=== PATIENT | female | born 1995 | race Caucasian/White ===

== ENCOUNTER 2023-04-29 08:55 | Outpatient (REF) | payer MEDICAID, SELFPAY ==
[2023-04-29 11:16] LABS: MANUAL DIFF FLAG NO
[2023-04-29 11:28] LABS: Basophils Absolute Auto 0.1 X10*3/uL (0.0-0.2); Basophils Percent Auto 1.1 % (0-2); Eosinophils Absolute Auto 0.2 X10*3/uL (0.0-0.4); Eosinophils Percent Auto 2.3 % (0-4); Hematocrit 41.7 % (37.0-47.0); Hemoglobin 13.1 g/dl (12.0-16.0); Imm Gran Abs Auto 0.02 X10*3/uL (0.00-0.03); Imm Gran Pct Auto 0.2 % (0.0-0.4); Lymphocytes Absolute Auto 2.6 X10*3/uL (1.2-4.9); Mean Corpuscular HGB Conc 31.4 g/dl (31.0-35.0); Mean Corpuscular Hemoglobin 27.5 pg (27.0-33.0); Mean Corpuscular Volume 87.6 fL (80.0-98.0); Mean Platelet Volume 10.8 fL (9.4-12.3); Monocytes Absolute Auto 0.5 X10*3/uL (0.1-1.2); Monocytes Percent Auto 6.2 % (2-11); Neutrophils Absolute Auto 4.8 x10*3/uL (2.0-8.3); Neutrophils Percent Auto 58.2 % (45-73); Platelet Count 303 X10*3/uL (160-400); Red Blood Count 4.76 X10*6/uL (4.20-5.50); Red Cell Distribution Width 13.4 % (11.0-16.0); White Blood Count 8.2 X10*3/uL (4.8-10.8)
[2023-04-29 11:41] LABS: Estimated Average Glucose 100 mg/dL; Hemoglobin A1c % 5.1 % (<6.0)
[2023-04-29 12:15] LABS: Alanine Aminotransferase 23 U/L (0-31); Albumin Level 4.2 g/dL (3.5-5.0); Alkaline Phosphatase 67 U/L (39-117); Anion Gap 11 (12-20); Aspartate Amino Transferase 15 U/L (5-31); Bilirubin Total 0.5 mg/dL (0.0-1.0); Blood Urea Nitrogen 11 mg/dL (9-16); Calcium 9.2 mg/dL (8.4-10.2); Carbon Dioxide 24 mmol/L (22-29); Chloride 106 mmol/L (96-108); Cholesterol 171 mg/dL (<200); Estimated Glomerular Filt Rate > 60; Glucose Random 99 mg/dL (60-115); HDL Cholesterol 31 mg/dL (>40); LDL Cholesterol Calculated 90 mg/dL (<100); Potassium 4.6 mmol/L (3.3-5.1); Sodium 136 mmol/L (135-145); TSH reflex Free T4 1.57 uIU/mL (0.32-4.0); Total Protein 7.3 g/dL (6.5-8.0); Triglycerides 254 mg/dL (<150)
[2023-04-29 13:18] LABS: CT PCR NOT DETECTED (Not Detect.); NG PCR NOT DETECTED (Not Detect.)
[2023-05-02 04:05] LABS: Syphilis Screen Nonreactive (Nonreactive)
[2023-05-02 04:48] LABS: HBS Num1 0.77 mIU/mL (0-7.99); HBc Num1 0.09 S/CO (0.00-0.79); HBsAGNum1 0.43 S/CO (0.00-0.99); HIV AB/AG Nonreactive (Nonreactive); HIV Num 1 0.04 S/CO (0.00-0.99); Hepatitis B Core Antibody Nonreactive (Nonreactive); Hepatitis B Surface Antigen Negative (Negative); ~HepC Num1 0.04 S/CO (0.00-0.79); ~Hepatitis B Surface Antibody NONREACTIVE (Nonreactive); ~Hepatitis C Antibody Nonreactive (Nonreactive)
[2023-05-03 12:18] LABS: VITAMIN D (1,25 OH) D3 86 pg/mL; Vit D (1,25-Dihydroxy) Total 86 pg/mL (18-72); Vitamin D (1,25 OH) D2 <8 pg/mL
== END 2023-04-29 08:56 | disposition home or self-care (01) ==
LOC: HO.HHCL 08:55
PROVIDERS: Visit Provider Student in an Organized Health Care Education/Training Program
DX: Z00.00 Encounter for general adult medical examination without abnormal findings (principal)
CPT/HCPCS: 0353U; 80053; 80061; 82652; 83036; 84443; 85025; 86704; 86706; 86780; 86803; 87340; 87389

== ENCOUNTER 2023-08-22 16:18 | Outpatient (REF) | payer MEDICAID, SELFPAY | END 2023-08-22 16:19 | disposition home or self-care (01) | LOC: HO.HHCLNP 16:18 | PROVIDERS: Visit Provider Advanced Practice Midwife | DX: Z12.4 Encounter for screening for malignant neoplasm of cervix (principal) | CPT/HCPCS: 88142 ==

== ENCOUNTER 2023-08-26 15:29 | Outpatient (REF) | payer MEDICAID, SELFPAY ==
--- NOTE | ~2023-08-26 | US_ITS ---
EXAMINATION: US PELVIS CLINICAL INFORMATION: Heavy menses. COMPARISON: None available. TECHNIQUE: Ultrasound of the pelvis is performed using both transabdominal and transvaginal transducers along with Doppler. Transvaginal imaging is performed due to inadequate visualization transabdominally. FINDINGS: Uterus: The uterus is anteverted, anteflexed and measures 8.4 x 3.9 x 4.6 cm. The double wall endometrial thickness 1.06 cm. The uterus is smooth in contour and has normal myometrial echogenicity. No visible fibroid. There are small fluid within endocervical canal. Small nabothian cysts seen in the cervical canal. Adnexa: Both ovaries are visualized. There is normal color flow to the adnexa. There is no ovarian torsion. There is no pelvic ascites or fluid collection. Right ovary measures 3.7 x 1.3 x 1.6 CM and volume 3.8 mL. It appears unremarkable. Left ovary measures 4.0 x 1.9 x 3.0 cm and volume 11.9 mL. There is a small anechoic dominant follicle measuring 1.9 x 1.7 x 1.9 cm. There is no free fluid in the cul-de-sac. US/US pelvic and transvaginal IMPRESSION: 1. Unremarkable uterus. 2. Small nabothian cysts in the cervical canal. 3. Dominant follicle left ovary. 4. The right ovary is unremarkable. 5. There is no free fluid in the cul-de-sac.
== END 2023-08-26 15:30 | disposition home or self-care (01) ==
LOC: HO.HMGCX 15:29
PROVIDERS: PCP Student in an Organized Health Care Education/Training Program; Visit Provider Advanced Practice Midwife
DX: N92.0 Excessive and frequent menstruation with regular cycle (principal)
CPT/HCPCS: 76830; 76856

== ENCOUNTER 2023-10-27 17:38 | Outpatient (REF) | payer MEDICAID, SELFPAY ==
[2023-10-28 09:46] LABS: BV Int Neg Control Negative (Negative); BV Int Pos Control Positive (Positive)
== END 2023-10-27 17:39 | disposition home or self-care (01) ==
LOC: HO.HHCLNP 17:38
PROVIDERS: Visit Provider Advanced Practice Midwife
DX: L29.3 Anogenital pruritus, unspecified (principal)
CPT/HCPCS: 87480; 87510; 87660

== ENCOUNTER 2023-11-30 13:27 | Outpatient (REF) | payer MEDICAID, SELFPAY ==
--- NOTE | ~2023-11-30 | US_ITS ---
EXAMINATION: US DIAGNOSTIC ULTRASOUND BREAST, RIGHT CLINICAL INFORMATION: Right axillary pain times few months. No palpable abnormality. COMPARISON: None available. TECHNIQUE: Ultrasound of the right axilla and axillary tail right breast was performed with real-time perry scale imaging and color Doppler. FINDINGS: There is no abnormal lymph node, mass, cystic abnormality, abnormal shadowing, or axillary fat abnormality. Only normal structures and normal lymph nodes are visualized. Results are provided to the patient at time of visit by the technologist. US/US breast RT limited IMPRESSION: Normal exam. No sonographic correlate to explain right axillary pain. Recommend clinical management and follow-up. ASSESSMENT: BI-RADS 1 - Negative RECOMMENDATION: 1. Patient should be managed based on the clinical impression.
== END 2023-11-30 13:28 | disposition home or self-care (01) ==
LOC: HO.MAMMO 13:27
PROVIDERS: PCP Student in an Organized Health Care Education/Training Program; Visit Provider Student in an Organized Health Care Education/Training Program
DX: N64.4 Mastodynia (principal)
CPT/HCPCS: 76642

== ENCOUNTER 2023-12-26 11:19 | Outpatient (REF) | payer MEDICAID, SELFPAY ==
[2023-12-26 14:06] LABS: Cholesterol 162 mg/dL (<200); HDL Cholesterol 35 mg/dL (>40); LDL Cholesterol Calculated 79 mg/dL (<100); Triglycerides 240 mg/dL (<150)
[2023-12-26 14:30] LABS: Vitamin D 25-OH Total 35.4 ng/mL (>30)
== END 2023-12-26 11:20 | disposition home or self-care (01) ==
LOC: HO.HHCL 11:19
PROVIDERS: Visit Provider Student in an Organized Health Care Education/Training Program
DX: E78.2 Mixed hyperlipidemia (principal); E66.09 Other obesity due to excess calories; Z68.39 Body mass index [BMI] 39.0-39.9, adult
CPT/HCPCS: 36415; 80061; 82306

== ENCOUNTER 2025-05-01 09:53 | Outpatient (REF) | payer MEDICAID, SELFPAY ==
--- NOTE | ~2025-05-01 | US_ITS ---
CLINICAL HISTORY: bilateral pinching pain sides of neck r o masses US Neck soft tissues Comparison: None provided Findings: Left neck level 2 region demonstrates a hypoechoic oval-shaped mass in the area of concern indicated by the patient measuring 0.9 x 0.5 x 2.1 cm. This lymph node demonstrates a fatty hilum on the sweep images. Benign-appearing lymph node in the left neck level 2 measuring 0.9 x 0.5 x 1.2 cm with a maintained fatty hilum. There are 2 benign-appearing lymph nodes in the left neck corresponding with the area indicated by the patient in level 2 region which are subcentimeter in short axis. Ultrasound of the right neck level 2 in the area indicated by the patient demonstrates no sonographic masses or fluid collections. No suspicious sonographic findings. IMPRESSION: 1. There are 2 benign-appearing lymph nodes in the left neck corresponding with the area indicated by the patient in level 2 region which are subcentimeter in short axis. clinical correlation is recommended. Follow-up as clinically indicated. 2. Ultrasound of the right neck level 2 in the area indicated by the patient demonstrates no sonographic masses or fluid collections. No suspicious sonographic findings. clinical correlation is recommended. Follow-up as clinically indicated. This document has been electronically signed by: Oren Suresh DO on 05/02/2025 10:05:09
--- OUTSIDE RECORDS SUMMARY | 2025-05-01 11:14 | XMS_ITS | Encounter Summary ---
Author Organization [employer] Address [address] [place] [address] [address] [place] [address] Care Team Providers Care Junior Programmer Analyst Name Role Phone Zayda Velásquez MD Primary Care Pro vider Reason for Visit * Reason Onset Date Comments Appointment Request 05/26/2023 Encounter Details Date Type Department Care Team ([facility] Contact Info) Description 05/26/2023 Telephone [facility] MEDICINE [address] [place], [place] [phone] Zayda Velásquez MD [address] [place] [address] Appointment Request Social History Tobacco Use Types Packs/Day Years Used Date Smoking Tobacco: Never Smokeless Tobacco: Never Alcohol Use Standard Drinks/Week Comments Yes 0 (1 standard drink = 0.6 oz pur e alcohol) social Depression Answer Date Recorded Patient Health Questionnaire-9 Score 8 04/18/2023 Patient Health Questionnaire-9 Score 8 04/18/2023 Last PHQ-9: Questionnaire Data Not on file 1 Depression Answer Date Recorded Patient Health Questionnaire-2 Score 1 04/18/2023 Comments Unknown Sex and Gender Information Value Date Recorded Sex Assigned at Female 02/10/2023 4:36 PM EDT Legal Sex Female 4:32 PM EDT Gender Identity Female 02/10/2023 4:36 PM EDT Sexual Orientation Straight 02/10/2023 4: 36 PM EDT documented as of this encounter Miscellaneous Notes * Telephone Encounter - Anayeli Askew Jose - 05/26/2023 4:09 PM EST Tc from pt requesting to r/s f/u on 05/18/2023 Please contact pt at [phone] documented in this encounter Plan of Treatment Upcoming Encounters Date Type Department Care Team (Late st Contact Info) Description 05/31/2025 1:00 PM EST Nutrition [facility] DIABETES/NUTRITION [address] [place] [address] Colette Reyna, EAN [address] [place] [address] 06/07/2025 11:15 AM EST Office Visit [facility]ICINE [address] [place], [place] [phone] Zayda Velásquez MD [address] [place] [phone] documented as of this encounter Visit Diagnoses Not on filedocumented in this encounter Additional Health Concerns Assessment Noted Time PHQ-9 Depression Total Score: 8 04/18/20 3:52 PM EDT documented as of this encounter Care Teams Junior Programmer Analyst Relationship Specialty Start Date End Date Zayda Velásquez MD [address] [place], [place] [phone] PCP - General Internal Medicine 04/18/23 documented as of this encounter
--- OUTSIDE RECORDS SUMMARY | 2025-05-01 11:14 | XMS_ITS | Encounter Summary ---
Author Organization [employer] Address [address] [facility] 7 [place] [address] Care Team Providers Care Speech Clinician Name Role Phone Zayda Velásquez MD Primary Care Pro vider Reason for Visit * Reason Comments Med Refill Encounter Details Date Type Department Care Team ([facility] Contact Info) Description 08/18/2023 Refill [facility] [address] [place] [address] [phone] Zayda Velásquez MD [address] [place] [address] Social History Tobacco Use Types Packs/Day Years Used Date Smoking Tobacco: Never Passive Smoke Exposure: Never Smokeless Tobacco: Never Alcohol Use Standard Drinks/Week Comments Yes 0 (1 standard drink = 0.6 oz pur e alcohol) social Depression Answer Date Recorded Patient Health Questionnaire-9 Score 8 04/18/2023 Patient Health Questionnaire-9 Score 8 04/18/2023 Last PHQ-9: Questionnaire Data Not on file 1 Housing Stability Answer Date Recorded What is your housing situation today? I have jaki curtis 07/14/[address] you li ve. Do you have problems with any of the following? None of the above 07/14/2023 Food Insecurity Answer Date Recorded Within the past 12 months, y ou worried that your food would run out before you got money to buy more: Never True 07/14/2023 Within the past 12 months,th e food you bought just didn't last and you didn't have enough money to get more: Never True Transportation Answer Date Recorded In the past 12 months, has l ack of transportation kept you from medical appts, meetings, work or from getting things needed for daily living? No 07/14/2023 Utilities Answer Date Recorded In the past 12 months, has t he electric, gas, oil or water company threatened to shut off services in your home? No 07/14/2023 Depression Answer Date Recorded Patient Health Questionnaire-2 Score 1 04/18/2023 Comments Unknown Sex and Gender Information Value Date Recorded Sex Assigned at Female 02/10/2023 4:36 PM EDT Legal Sex Female 4:32 PM EDT Gender Identity Female 02/10/2023 4:36 PM EDT Sexual Orientation Straight 02/10/2023 4: 36 PM EDT documented as of this encounter Plan of Treatment Upcoming Encounters Date Type Department Care Team (Late st Contact Info) Description 05/31/2025 1:00 PM EST Nutrition [facility] DIABETES/NUTRITION [address] [place] [phone] [place] [address] 06/07/2025 11:15 AM EST Office Visit [facility] MEDICINE [address] [place] [phone] Zayda Velásquez MD [address] [place] [phone] documented as of this encounter Visit Diagnoses Not on filedocumented in this encounter Additional Health Concerns Assessment Noted Time PHQ-9 Depression Total Score: 8 04/18/20 3:52 PM EDT documented as of this encounter Care Teams Speech Clinician Relationship Specialty Start Date End Date Zayda Velásquez MD [address] [place] [phone] PCP - General Internal Medicine 04/18/23 documented as of this encounter
--- OUTSIDE RECORDS SUMMARY | 2025-05-01 11:14 | XMS_ITS | Clinical Summary ---
Author Organization [employer] Address [address] [facility] 7t [place] [address] Care Team Providers Care Car Repairman Name Role Phone Zayda Velásquez MD Primary Care Pro vider Allergies No known active allergies Medications Acetaminophen Extra Strength 500 MG tablet TAKE 2 TABLETS BY MOUTH EVERY 8 HOURS 3 Active aspirin-acetami nophen-caffeine (Excedrin Migraine) 250-250-65 MG tablet Take 1 tablet by mouth every 6 (six) hours if needed. Active ibuprofen 600 MG tablet TAKE 1 TABLET BY MOUTH THREE TIMES A DAY WITH FOOD NEEDED 3 Active albuterol 108 (90 Base) MCG/ACT inhaler Inhale 2 puffs every 6 (six) hours if needed for wheezing. 18 g 2 4 Active fluticasone (Flonase) 50 MCG/ACT nasal spray [place] 2 sprays every day by intranasal route. 5 Active multivitamin () 27-0.8 MG tablet Take 1 tablet by mouth Once per day. 90 tablet 2 5 Active Active Problems Problem Noted Date Diagnosed Date Mild persistent asthma, unspecified whether comp licated 03/15/2025 INOCENTE (obstructive sleep apnea) 03/15/2025 Neck pain 03/15/2025 Allergic rhinitis due to animal hair and dander 11/22/2024 Dyspnea 12/27/2023 Umbilical hernia 10/27/2023 Health care maintenance 04/19/2023 Anxiety with depression 04/19/2023 Obesity 04/19/2023 Migraine Assessment & Plan (04/03/2023 10:53 PM EDT): Pt reports for last 2 to 3 months at least 3 episodes of left eye blurred vision associated w POTTER reported as intense Denies other neuro complaints and normal neuro exam on todays exam States last episode of POTTER was 2 weeks ago Now asymptomatic -I called today Dr Majano and pt will be seen for complete eye exam today to r/o retinopathy and other eye pathology as glaucoma -possible pt with complex migraine -tylenol prn for mild pain,excedrin prn for moderate pain -I will see this pt in 2 weeks and if symptoms are still present, or not controlled will refer for brain MRI to r/o other concerning pathology as neuro deg pathology/ vs masses -alarm signs and symptoms discussed in case needs to go to ED Resolved Problems Problem Noted Date Diagnosed Date Resolved Date Breast pain, right 10/27/2023 Throat pain 07/17/2023 10/27/2023 Assessment & Plan (07/17/2023 10:33 AM EST): no pustules no cervical LDN , No clear signs of infection at this time Possible tonsil stones seen -not currently Rapid strep test neg -treat for postnasal drip symptoms w flonase BID x 14 to 21 days -cepacol prn -Tylenol prn and NSAIDS as needed -advised mouth washes -alarm signs and symptoms Elevated blood pressure reading 04/19/2023 10/27/2023 Assessment & Plan (07/17/2023 10:32 AM EST): Pt has BP machine at home advised to bring home BP readings at next visit at least twice a week readings Encounters Date Type Department Care Team Description 03/15/2025 9:00 AM EDT Office Visit [facility] [address] [place] [phone] Zayda Velásquez MD Mild persistent asthma, unspecified whether complicated (Primary Dx); Dietary counseling; Exercise counseling; Class 2 obesity due to excess calories without serious comorbidity with body mass index (BMI) of 39.0 to 39.9 in adult; INOCENTE (obstructive sleep apnea); Annual physical exam; Neck pain, bilateral; Health care maintenance; Neck pain 03/15/2025 Travel 03/14/2025 Telephone [facility] [address] [place] [phone] Zayda Velásquez MD chart prep from Last 3 Months Immunizations Immunization Administration Dates Next Due Tdap 12/27/2023,05/12/2021 Family History Medical History Relation Name Comments brain tumor Father DM2 Father unspecified malignancy Maternal Grandfather HTN Mother Skin cancer Mother Vaginal cancer Mother heart condition -unspecified Mother Relation Name Status Comments Father Maternal Grandfather Mother Social History Tobacco Use Types Packs/Day Years Used Date Smoking Tobacco: Never Passive Smoke Exposure: Never Smokeless Tobacco: Never Tobacco Cessation:Counseling Given: Not Answered Alcohol Use Standard Drinks/Week Comments Never 0 (1 standard drink = 0.6 oz pur e alcohol) social Depression Answer Date Recorded Patient Health Questionnaire-9 Score 0 03/15/2025 Patient Health Questionnaire-9 Score 0 03/15/2025 Last PHQ-9: Questionnaire Data Not on file 0 03/15/2025 Housing Stability Answer Date Recorded What is your housing situation today? I have jaki curtis 11/08/[address] you li ve. Do you have problems with any of the following? None of the above 11/08/2024 Food Insecurity Answer Date Recorded Within the past 12 months, y ou worried that your food would run out before you got money to buy more: Never True 11/08/2024 Within the past 12 months,th e food you bought just didn't last and you didn't have enough money to get more: Never True Transportation Answer Date Recorded In the past 12 months, has l ack of transportation kept you from medical appts, meetings, work or from getting things needed for daily living? No 11/08/2024 Utilities Answer Date Recorded In the past 12 months, has t he electric, gas, oil or water company threatened to shut off services in your home? No 11/08/2024 Depression Answer Date Recorded Patient Health Questionnaire-2 Score 0 03/15/2025 Internet Access Answer Date Recorded Internet Access Q1 Yes 11/08/2024 Internet Access Q2 Not on file 11/08/2024 Comments No Sex and Gender Information Value Date Recorded Sex Assigned at Female 02/10/2023 4:36 PM EDT Legal Sex Female 4:32 PM EDT Gender Identity Female 02/10/2023 4:36 PM EDT Sexual Orientation Straight 02/10/2023 4: 36 PM EDT Last Filed Vital Signs Vital Sign Reading Time Taken Comments Blood Pressure 100/62 03/15/2025 9:04 AM EDT Pulse 52 03/15/2025 9:04 AM EDT Temperature 36.2 C (97.1 F) 03/15/2025 9:04 AM EDT Respiratory Rate 20 03/15/2025 9:04 AM EDT Oxygen Saturation 98% 03/15/2025 9:04 AM EDT Inhaled Oxygen Concentration - - Weight 86.2 kg (190 lb) 03/15/2025 9:04 AM EDT Height 149.9 cm (4' 11 ) 03/15/2025 9:04 AM EDT Body Mass Index 38.38 03/15/2025 9:04 AM EDT Plan of Treatment Upcoming Encounters Date Type Department Care Team (Late st Contact Info) Description 05/31/2025 1:00 PM EST Nutrition [facility] DIABETES/NUTRITION [address] [place] [phone] Colette Reyna, EAN [address] [place] [address] 06/07/2025 11:15 AM EST Office Visit [facility] [address] [place] [phone] Zayda Velásquez MD [address] [place], [place] [phone] Health Maintenance Due Date Last Done Comments Family Planning (PISQ) 2010 HPV Vaccines (1 - 3-dose series) 2010 Hepatitis B Vaccines (1 of 3 - 19+ 3-dose series) 2014 Pneumococcal Vaccine: Pediatrics (0 to 5 Years) and At-Risk Patients (6 to 49) Years (1 of 2 - PCV) 2014 HPV/Cotest 2025 COVID-19 Vaccine (1 - 2023-2 5 season) 2025 Influenza Vaccine (#1) 2025 SDOH Screening 11/08/2025 11/08/2024 Alcohol/Substance Use Screening 03/15/2026 03/15/2025 Depression Screening 03/15/2026 03/15/2025, 03/15/2025 Disability Screening 03/15/2026 03/15/2025 Tobacco Screening 03/15/2026 03/15/2025 Cervical Cancer Screening 08/22/2026 Pap Smear 08/22/2026 08/22/2023 Lipid Panel 12/25/2028 12/26/2023, 04/29/2023 DTaP/Tdap/Td Vaccines (3 - T d or Tdap) 12/26/2033 12/27/2023, 05/12/2021 Zoster Vaccines (1 of 2) 2045 RSV Patients and Patients Aged 60 years or older (1 - 1-dose 75+ series) 2070 HIV Screening Completed 04/29/2023, 05/12/2021 Hepatitis C Screening Completed 04/29/2023 HIB Vaccines Aged Out No longer eligi ble based on patient's age to complete this topic Hepatitis A Vaccines Aged Out No long er eligible based on patient's age to complete this topic IPV Vaccines Aged Out No longer eligi ble based on patient's age to complete this topic Meningococcal B Vaccine Aged Out No l onger eligible based on patient's age to complete this topic Meningococcal Vaccine Aged Out No gato jean eligible based on patient's age to complete this topic RSV under 20 months Aged Out No longe r eligible based on patient's age to complete this topic Rotavirus Vaccines Aged Out No longer eligible based on patient's age to complete this topic Procedures Procedure Name Priority Date/Time Associated Diagnosis Comments LIPID PANEL, STANDARD Routine 12/26/2023 11:20 AM EDT Elevated triglycerides with high cholesterol PAP SMEAR Routine 08/22/2023 1:40 PM EST Cervical cancer screening HEPATITIS C AB W/REFL TO HCV RNA, QN, PCR Routine 04/29/2023 9:02 AM EDT Annual physical exam HIV 1/2 ANTIGEN/ANTIBODY, FOURTH GENERATION W/RFL Routine 04/29/2023 9:02 AM EDT Annual physical exam from Last 3 Months or Most Recently Relevant to Health Maintenance Results * (ABNORMAL) Lipid Panel, Standard (12/26/2023 11:20 AM EDT) Triglycerides 240(H) <150 mg/dL [facility] Comment:Desirable Triglyceri de: less than 150 mg/dLBorderline High Triglyceride 150-199 mg/dLHigh Triglyceride: 200-499 mg/dLVery High Triglyceride: greater than or equal to 5OO mg/dL Cholesterol 162 <200 mg/dL [facility] Comment:Desirable Cholestero l: less than 200 mg/dLBorderline High Cholesterol: 200-239 mg/dLHigh Cholesterol: greater than 239 mg/dL LDL Cholesterol Calculated 79 <100 mg/dL [facility] Comment:Desirable LDL: less than 100 mg/dLNear Optimal/Above Optimal LDL: 110- 129 mg/dLBorderline High LDL: 130-159 mg/dLHigh LDL: 160-189 mg/dLVery High LDL: greater than or equal to 190 mg/dL HDL Cholesterol 35(L) >40 mg/dL [facility] Comment:Desirable HDL: great er than 40 mg/dL Note: This HDL assay may give artificially low results in patients with liver disease. Blood Venous blood specimen / Unknown 12/26/2023 11:20 AM EDT 12/26/2023 1:18 PM EDT us Zayda Lima MD LAB BLOOD ORDERAB LES Final Result [facility] [address] [place] [phone] * Pap Smear (08/22/2023 1:40 PM EST) Swab Cervix uteri structure / Unknown 08/22/2023 1:40 PM EST 08/23/2023 12:15 PM EST Narrative [facility] - 09/02/2023 11:42 AM EST ----- ------- Name: Tona Serrato Age/Sex: 28/F : 1995 Unit#: [id number] Attend Dr: MARGOT COATS [facility] Re08/22/23 Status: DEP [facility] ----- ------- SPEC : [id number] RECD: 08/23/23-1215 STATUS: IRIS ELIZONDO NUM: [id number] IMAN: 08/22/23-[address] [facility] [address]: MARGOT COATS [facility] ENTERED: 08/24/23-0811 SP TYPE: Pap Smr [facility] DR: ORDERED: Pap Smear Interpretation Satisfactory for evaluation. Negative for intraepithelial lesion or malignancy. Clinical Information LMP: Unknown date Previous PAP test: Unknown date/findings Material Received ThinPrep-Cervical ----- ------- Signed (signature on file) BERRY Lechuga ([facility]) 09/02/23 1142 ----- ------- END OF REPORT Margot Coats [facility] LAB CYTOLOGY ORDERABLES F inal Result Performing Organization Address [facility]/ZIP Co de Phone Number [facility] [address] [place] [address] [phone] * Hepatitis C Antibody with Reflex to HCV, RNA, Quantitative, Real-Time PCR (04/29/2023 9:02 AM EDT) Hepatitis C Antibody Nonreactive Nonreactive [facility] Comment:Antibodies to HCV no t detected; does not exclude early acuteHCV infection. Blood Venous blood specimen / Unknown 04/29/2023 9:02 AM EDT 04/29/2023 11:13 AM EDT Zayda Lima MD LAB BLOOD ORDERAB LES Final Result Performing Organization Address [facility]/ZIP Co de Phone Number [facility] [address] [place] [address] [phone] * HIV-1/2 Antigen and Antibodies, Fourth Generation, with Reflexes (04/29/2023 9:02 AM EDT) HIV AB/AG Nonreactive Nonreactive [facility] Comment:HIV-1 p24 Ag and/or HIV-1/HIV-2 Ab not detected.A test result that is nonreactive does not exclude thepossibility of exposure to or infection with HIV-1 and/orHIV-2. Nonreactive results in this assay for individualswith prior exposure to HIV-1 and/or HIV-2 may be due toantigen and antibody levels that are below the limit ofdetection of this assay.The [employer] HIV Ag/Ab Combo assay result andsupplemental assay results should be interpreted inconjunction with the patient's clinical presentation,history and other laboratory results. If the results areinconsistent with clinical evidence, additional testing issuggested to confirm the result. Blood Venous blood specimen / Unknown 04/29/2023 9:02 AM EDT 04/29/2023 11:13 AM EDT Zayda Lima MD LAB BLOOD ORDERAB LES Final Result [facility] [address] [place] [address] [phone] from Last 3 Months or Most Recently Relevant to Health Maintenance Insurance [employer] C3 Care Teams Car Repairman Relationship Specialty Start Date End Date Zayda Velásquez MD [address] [place] [phone] PCP - General Internal Medicine 04/18/23
== END 2025-05-01 09:54 | disposition home or self-care (01) ==
LOC: HO.HMGCX 09:53
PROVIDERS: PCP Student in an Organized Health Care Education/Training Program; Visit Provider Student in an Organized Health Care Education/Training Program
DX: M54.2 Cervicalgia (principal)
CPT/HCPCS: 76536

== ENCOUNTER → 2025-05-01 10:02 | Outpatient (BNV) | payer MEDICAID, SELFPAY | PROVIDERS: PCP Student in an Organized Health Care Education/Training Program; Visit Provider Family Medicine | DX: M54.2 Cervicalgia (principal) | CPT/HCPCS: 76536 ==

== ENCOUNTER 2025-06-05 11:26 | Outpatient (REF) | payer MEDICAID, SELFPAY ==
[2025-06-05 13:54] LABS: MANUAL DIFF FLAG NO
[2025-06-05 13:56] LABS: Hematocrit 38.6 % (37.0-47.0); Hemoglobin 12.4 g/dl (12.0-16.0); Imm Gran Abs Auto 0.02 X10*3/uL (0.00-0.03); Imm Gran Pct Auto 0.3 % (0.0-0.4); Lymphocytes Absolute Auto 2.3 X10*3/uL (1.2-4.9); Mean Corpuscular HGB Conc 32.1 g/dl (31.0-35.0); Mean Corpuscular Hemoglobin 27.7 pg (27.0-33.0); Mean Corpuscular Volume 86.2 fL (80.0-98.0); NRBC Abs Auto 0.000 X10*3/uL (0.0-0.012); NRBC Pct Auto 0.0 /100WBC (0.0-0.2); Platelet Count 292 X10*3/uL (160-400); Red Blood Count 4.48 X10*6/uL (4.20-5.50); White Blood Count 7.2 X10*3/uL (4.8-10.8)
[2025-06-05 14:28] LABS: Alanine Aminotransferase 24 U/L (0-31); Albumin Level 4.3 g/dL (3.5-5.0); Alkaline Phosphatase 68 U/L (39-117); Anion Gap 6 (12-20); Aspartate Amino Transferase 18 U/L (5-31); Blood Urea Nitrogen 11 mg/dL (9-16); Calcium 9.0 mg/dL (8.4-10.2); Carbon Dioxide 30 mmol/L (22-29); Chloride 109 mmol/L (96-108); Cholesterol 143 mg/dL (<200); Estimated Glomerular Filt Rate > 60; HDL Cholesterol 34 mg/dL (>40); Potassium 3.9 mmol/L (3.3-5.1); Sodium 141 mmol/L (135-145); Total Protein 7.0 g/dL (6.5-8.0); Triglycerides 215 mg/dL (<150)
[2025-06-05 15:36] LABS: CT PCR Urine NOT DETECTED (Not Detect.); NG PCR Urine NOT DETECTED (Not Detect.)
[2025-06-06 04:13] LABS: Syphilis Screen Nonreactive (Nonreactive)
[2025-06-06 04:49] LABS: HBS Num1 0.00 mIU/mL (0-7.99); HBc Num1 0.14 S/CO (0.00-0.79); HBsAGNum1 0.58 S/CO (0.00-0.99); HIV Num 1 0.08 S/CO (0.00-0.99); Hepatitis B Surface Antigen Negative (Negative); ~HepC Num1 0.14 S/CO (0.00-0.79); ~Hepatitis B Surface Antibody NONREACTIVE (Nonreactive); ~Hepatitis C Antibody Nonreactive (Nonreactive)
== END 2025-06-05 11:27 | disposition home or self-care (01) ==
LOC: HO.HHCL 11:26
PROVIDERS: PCP Student in an Organized Health Care Education/Training Program; Visit Provider Student in an Organized Health Care Education/Training Program
DX: Z00.00 Encounter for general adult medical examination without abnormal findings (principal); Z20.2 Contact with and (suspected) exposure to infections with a predominantly sexual mode of transmission; Z11.4 Encounter for screening for human immunodeficiency virus [HIV]; Z11.59 Encounter for screening for other viral diseases
CPT/HCPCS: 80053; 80061; 82306; 83036; 84443; 85025; 86704; 86706; 86780; 86803; 87340; 87389; 87491; 87591